=== PATIENT | male | born 1975 ===

== ENCOUNTER 2016-12-28 13:33 | Emergency (ER) | payer BC ==
[2016-12-28 14:02] VITALS: BP 122/77
--- NOTE | 2016-12-28 14:24 | RAD ---
INDICATION: Right index finger injury. TECHNIQUE: 3 views of the right index finger were obtained. FINDINGS: There is focal soft tissue swelling present at the proximal interphalangeal joint. There is an avulsion fracture fragment present at the volar base of the middle phalanx which is nondisplaced. IMPRESSION: NONDISPLACED VOLAR PLATE FRACTURE BASE OF THE MIDDLE PHALANX.
--- NOTE | 2016-12-28 14:25 | UC ---
Hand/Wrist HPI - HPI Summary HPI Summary: Patient jammed finger playing basketball, right index finger, thinks he heard a pop. the finger is bruised and swollen - History Of Current Complaint Chief Complaint: UCUpperExtremity Stated Complaint: RIGHT INDEX FINGER INJURY Time Seen by Provider: 12/28/16 14:14 Hx Obtained From: Patient ?: No Onset/Duration: Sudden Onset, Lasting Days Severity Initially: Moderate Severity Currently: Moderate Character Of Pain: Aching, Stiffness Aggravating Factor(s): Movement Alleviating: Elevation Associated Signs And Symptoms: Positive: Swelling, Bruising - Allergies/Home Medications Allergies/Adverse Reactions: Allergies Allergy/AdvReac Type Severity Reaction Status Date / Time No Known Allergies Allergy Verified 12/28/16 14:02 Home Medications: Home Medications Fluticasone NASAL SPRAY 50MCG* [Flonase NASAL SPRAY 50MCG*] 2 spr BOTH NARES DAILY 12/28/16 [History Confirmed 12/28/16] Naproxen [Naprosyn EC 375 MG TAB] 440 mg PO BID PRN 12/28/16 [History Confirmed 12/28/16] Propranolol TAB* [Inderal TAB*] 40 mg PO DAILY PRN 12/28/16 [History Confirmed 12/28/16] PMH/Surg Hx/FS Hx/Imm Hx Previously Healthy: Yes - Surgical History Surgical History: Yes Surgery Procedure, Year, and Place: wisdom teeth - Family History Known Family History: Negative: Cardiac Disease, Hypertension - Social History Alcohol Use: Rare Substance Use Type: None Smoking Status (MU): Never Smoked Tobacco Review of Systems Skin: Bruising Eyes: Negative ENT: Negative Respiratory: Negative Cardiovascular: Negative Gastrointestinal: Negative Genitourinary: Negative Motor: Negative Neurovascular: Negative Musculoskeletal: Arthralgia, Edema Neurological: Negative Psychological: Negative All Other Systems Reviewed And Are Negative: Yes Physical Exam Triage Information Reviewed: Yes Appearance: Well-Appearing, Well-Nourished, Pain Distress Vital Signs: Initial Vital Signs Temp 98.1 F 12/28/16 13:55 Pulse 72 12/28/16 13:55 Resp 18 12/28/16 13:55 BP 122/77 12/28/16 13:55 Vital Signs Reviewed: Yes Eye Exam: Normal Eyes: Positive: Conjunctiva Clear ENT Exam: Normal ENT: Positive: Hearing grossly normal, Pharynx normal, TMs normal Dental Exam: Normal Neck exam: Normal Neck: Positive: Supple, Nontender, No Lymphadenopathy Respiratory Exam: Normal Respiratory: Positive: Chest non-tender, Lungs clear, Normal breath sounds Cardiovascular Exam: Normal Cardiovascular: Positive: RRR, No Murmur, Pulses Normal Abdominal Exam: Normal Abdomen Description: Positive: Nontender, No Organomegaly, Soft Bowel Sounds: Positive: Present Musculoskeletal Exam: Normal Musculoskeletal: Positive: Strength Intact, ROM Intact, No Edema Neurological Exam: Normal Neurological: Positive: Alert, Muscle Tone Normal Psychological Exam: Normal Skin Exam: Normal Hand/Wrist Course/Dx - Course Course Of Treatment: hx obtained, exam performed, meds reviewed, xray obtained, patient already has a finger splint - Differential Dx/Diagnosis Differential Diagnosis/HQI/PQRI: Contusion, Dislocation, Fracture, Sprain, Strain, Tendonitis Provider Diagnoses: volar plate froacture of right index finger Discharge - Discharge Plan Condition: Stable Disposition: HOME Patient Education Materials: Finger Fracture (ED) Referrals: Tito Pardo MD [Medical Doctor] - Additional Instructions: 1. keep the splint in place. 2. warm water soaks daily to increase circulation 3. ibuprofen for pain. 4. follow up with orthopedic if not improving and recommend repeat imagingin in 4 weeks before return to contact sports
== END 2016-12-28 14:48 | disposition home or self-care (01) ==
LOC: UCCORT 13:33
DX: S62.662A Nondisplaced fracture of distal phalanx of right middle finger, initial encounter for closed fracture (principal); W23.0XXA Caught, crushed, jammed, or pinched between moving objects, initial encounter; Y93.67 Activity, basketball; Y92.310 Basketball court as the place of occurrence of the external cause
CPT/HCPCS: 73140; 99201; G0463